=== PATIENT | female | born 1975 | race Two or more races ===

== ENCOUNTER 2017-05-10 19:43 | Emergency (ER) | payer MEDICAID ==
[~2017-05-10] VITALS: Ht 147.3 cm; Wt 71.9 kg
[2017-05-10] MEDS ORDERED: DIAZEPAM 5 MG TABLET ONE (21:20)
[2017-05-10] MEDS ORDERED: KETOROLAC 30 MG/1 ML ONE (21:20)
[2017-05-10] MEDS ORDERED: KETOROLAC 30 MG/1 ML IM ONE (21:30)
[2017-05-10] MEDS ORDERED: DIAZEPAM 5 MG TABLET PO ONE (21:30)
[2017-05-10 21:47] VITALS: BP 118/81
== END 2017-05-10 21:50 | disposition home or self-care (01) ==
LOC: ED 21:44
DX: M51.16 Intervertebral disc disorders with radiculopathy, lumbar region (principal); F17.200 Nicotine dependence, unspecified, uncomplicated
CPT/HCPCS: 96372; 99283; J1885